=== PATIENT | male | born 1945 | race Caucasian/White ===

== ENCOUNTER 2019-08-12 10:42 | Outpatient (CLI) | payer MEDICARE ==
[2019-08-12] MEDS ORDERED: IRON GLYCINATE PO (11:20)
[2019-08-12] MEDS ORDERED: NITR0.4T28 SL (11:20)
[2019-08-12] MEDS ORDERED: SPIR25TA5 PO (11:20)
[2019-08-12] MEDS ORDERED: ASPI-496 PO (11:20)
[2019-08-12] MEDS ORDERED: FURO20TA3 PO (11:20)
[2019-08-12] MEDS ORDERED: MULT-658 PO (11:20)
[2019-08-12] MEDS ORDERED: GABA300C10 PO (11:20)
[2019-08-12] MEDS ORDERED: CHOL400T10 PO (11:20)
[2019-08-12] MEDS ORDERED: CAYE450C4 PO (11:20)
[2019-08-12] MEDS ORDERED: VITA10004 PO (11:20)
[2019-08-12] MEDS ORDERED: ACET-1600 PO (11:20)
[2019-08-12] MEDS ORDERED: GLIM4TAB4 PO (11:20)
[2019-08-12] MEDS ORDERED: IODI150T PO (11:20)
[2019-08-12] MEDS ORDERED: TAMS-11 PO (11:20)
[2019-08-12] MEDS ORDERED: HYDR-3059 PO (11:20)
[2019-08-12] MEDS ORDERED: NIFE30TA13 PO (11:20)
[2019-08-12] MEDS ORDERED: TEST5GEL TP (11:20)
[2019-08-12] MEDS ORDERED: ASCO-96 PO (11:20)
[2019-08-12] MEDS ORDERED: CAFF200T13 PO (11:20)
[2019-08-12] MEDS ORDERED: METO-93 PO (11:20)
[2019-08-12 12:06] LABS: ALBUMIN 3.2 g/dL (3.4-5.0); ANION GAP 4 mmol/L (5-15); CALCIUM 8.7 mg/dL (8.5-10.1); CHLORIDE 111 mmol/L (98-107)
[2019-08-12 12:09] LABS: ALANINE AMINOTRANSFERASE 23 U/L (12-78); ALKALINE PHOSPHATASE 92 U/L (45-117); CREATININE 2.15 mg/dL (0.7-1.3); TOTAL PROTEIN 7.2 g/dL (6.4-8.2)
== END 2019-08-12 23:59 | disposition home or self-care (01) ==
LOC: STAR 10:42
PROVIDERS: ATTEND Internal Medicine Geriatric Medicine
DX: I48.91 Unspecified atrial fibrillation (principal); I44.5 Left posterior fascicular block
CPT/HCPCS: 36415; 80053; 93005

== ENCOUNTER 2019-08-25 09:37 | Day surgery (SDC) | payer MEDICARE ==
[~2019-08-25] VITALS: Ht 175.3 cm; Wt 116.5 kg
[~2019-08-25 09:37] MED LIST: ACET-1600 PO; ASCO-96 PO; ASPI-496 PO; CAFF200T13 PO; CAYE450C4 PO; CHOL400T10 PO; FURO20TA3 PO; GABA300C10 PO; GLIM4TAB4 PO; HYDR-3059 PO; IODI150T PO; IRON GLYCINATE PO; METO-93 PO; MULT-658 PO; NIFE30TA13 PO; NITR0.4T28 SL; SPIR25TA5 PO; TAMS-11 PO; TEST5GEL TP; VITA10004 PO
[2019-08-25] MEDS ORDERED: SODIUM CHLORIDE 0.9% 1,000 ML IV SCH (10:06)
[2019-08-25 10:22] VITALS: BP_SYST 172; BP_SYST 185; BP_DIAS 101; BP_DIAS 98
[2019-08-25] MEDS ORDERED: PLEASE ENTER HEIGHT AND WEIGHT MC SCH (10:30)
[2019-08-25] MEDS ORDERED: METOPROLOL 1 MG/ML, 5ML ONE (11:07)
[2019-08-25] MEDS ORDERED: PROPOFOL 10 MG/ML, 20ML ONE (11:07)
[2019-08-25] MEDS ORDERED: HYDROmorphone 2 MG/ML, 1ML IVPush PRN (11:30)
[2019-08-25] MEDS ORDERED: ALBUTEROL SULFATE 2.5 MG/3 ML NPPB PRN (11:30)
[2019-08-25] MEDS ORDERED: HALOPERIDOL 5 MG/ML IV PRN (11:30)
[2019-08-25] MEDS ORDERED: PROMETHAZINE 25 MG/ML, 1ML IV PRN (11:30)
[2019-08-25] MEDS ORDERED: LABETALOL 5MG/ML, 20ML IV PRN (11:30)
[2019-08-25] MEDS ORDERED: hydrALAzine 20 MG/ML, 1ML IV PRN (11:30)
[2019-08-25] MEDS ORDERED: OXYcodone 5 MG/5 ML ORAL.SOL UDC PO PRN (11:30)
[2019-08-25] MEDS ORDERED: FENTANYL PF 100 MCG/2ML IV PRN (11:30)
== END 2019-08-25 13:40 | disposition home or self-care (01) ==
LOC: OUT 09:37
PROVIDERS: ATTEND Internal Medicine Gastroenterology
DX: Z09 Encounter for follow-up examination after completed treatment for conditions other than malignant neoplasm (principal); D12.2 Benign neoplasm of ascending colon; K52.9 Noninfective gastroenteritis and colitis, unspecified; K57.30 Diverticulosis of large intestine without perforation or abscess without bleeding; K64.4 Residual hemorrhoidal skin tags; K55.30 Necrotizing enterocolitis, unspecified; I13.0 Hypertensive heart and chronic kidney disease with heart failure and stage 1 through stage 4 chronic kidney disease, or unspecified chronic kidney disease; I50.9 Heart failure, unspecified; N18.9 Chronic kidney disease, unspecified; E11.22 Type 2 diabetes mellitus with diabetic chronic kidney disease; I25.119 Atherosclerotic heart disease of native coronary artery with unspecified angina pectoris; E66.9 Obesity, unspecified; Z68.38 Body mass index [BMI] 38.0-38.9, adult; Z79.82 Long term (current) use of aspirin; Z79.4 Long term (current) use of insulin; Z79.899 Other long term (current) drug therapy; Z88.0 Allergy status to penicillin; Z88.8 Allergy status to other drugs, medicaments and biological substances; Z96.612 Presence of left artificial shoulder joint; Z90.49 Acquired absence of other specified parts of digestive tract; Z98.890 Other specified postprocedural states; Z80.0 Family history of malignant neoplasm of digestive organs
CPT/HCPCS: 45380; 82962; 88305; J2704; J7030